=== PATIENT | female | born 1990 | race Caucasian/White ===

== ENCOUNTER 2021-02-15 20:24 | Emergency (ER) | payer SELFPAY ==
[~2021-02-15] VITALS: Ht 162.6 cm; Wt 68.0 kg
--- NOTE | 2021-02-15 20:25 | NUR ---
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 PT AAOX4, AMBULATORY WITH STEADY GAIT. RESPIRATIONS EVEN AND UNLABORED. NO ACUTE DISTRESS NOTED AT THIS TIME. WILL CONTINUE TO MONITOR
[2021-02-15] MEDS ORDERED: IPRATROPIUM NEB FS 0.5 MG/2.5 ML AMPUL.NEB ONE (20:54)
[2021-02-15] MEDS ORDERED: ALBUTEROL FS 2.5 MG/3 ML VIAL.NEB ONE (20:54)
[2021-02-15] MEDS ORDERED: ALBUTEROL FS 2.5 MG/3 ML VIAL.NEB NEB ONE (21:00)
[2021-02-15] MEDS ORDERED: IPRATROPIUM NEB FS 0.5 MG/2.5 ML AMPUL.NEB NEB ONE (21:00)
[2021-02-15] MEDS ORDERED: predniSONE 20 MG TABLET PO ONE (21:00)
[2021-02-15] MEDS ORDERED: predniSONE 20 MG TABLET ONE (21:10)
--- NOTE | 2021-02-15 21:10 | NUR ---
RT AT BEDSIDE FOR BREATHING TREATMENT
[2021-02-15] MEDS ORDERED: PRED20TA PO (22:09)
[2021-02-15] MEDS ORDERED: ALBU18HF2 INH (22:09)
[2021-02-15 22:25] VITALS: BP 147/89
--- NOTE | 2021-02-15 22:25 | NUR ---
Patient discharged to home in stable condition. Written and verbal after care instructions given. Patient verbalizes understanding of instruction.Pt ambulatory with a steady gait
== END 2021-02-15 22:25 | disposition home or self-care (01) ==
LOC: ER 20:31
DX: J45.909 Unspecified asthma, uncomplicated (principal); Z79.899 Other long term (current) drug therapy
CPT/HCPCS: 94644; 99285; J7512